=== PATIENT | female | born 1980 | race Caucasian/White ===

== ENCOUNTER 2016-05-07 08:53 | Emergency (ER) | payer BC ==
--- NOTE | 2016-05-07 09:44 | UCPHY ---
H & P Time Seen by Provider: 05/07/16 09:40 Patient Type: Established HPI/ROS: This patient presents with swelling, redness, pain and discharge involving the left RI. She denies any pain of the eyeball itself or any visual changes. Symptoms began 3 days ago she denies any constitutional symptoms such as blurring. Smoking Status: Never smoked Physical Exam: This is a well-developed well-nourished female who is in no acute distress. She is alert, lucid and entirely appropriate. Examination of the left eye reveals normal conjunctiva. Pupils are equal round react to light. There is no photophobia no obvious discharge at this time. The lower lid is swollen and erythematous. On the mucosal surface of the lower lid there is a white papule which I believe represents a stye. Constitutional: Initial Vital Signs Temperature (C) 37 C 05/07/16 09:09 Heart Rate 68 05/07/16 09:09 Respiratory Rate 16 05/07/16 09:09 Blood Pressure 111/71 05/07/16 09:09 O2 Sat (%) 98 05/07/16 09:09 O2 Delivery Mode Room Air Allergies/Adverse Reactions: codeine Allergy (Unknown, Verified 05/07/16 09:12) Unknown Home Medications: Medication Instructions Recorded Probiotic 05/07/16 Medical Decision Making Differential Diagnosis: I do not believe that systemic antibiotics are required and consequently this patient was treated with antibiotic drops. Departure - Departure Disposition: Home, Routine, Self-Care Clinical Impression: Tomym Qualifiers: Laterality: left Eyelid: lower Qualified Code(s): H00.015 - Hordeolum externum left lower eyelid Condition: Good Instructions: Tommy (ED) Additional Instructions: If your symptoms have not improved in 4 or 5 days you should be re-evaluated. If your symptoms are worsening or you develop a fever you should be seen right away. Apply warm packs to the area several times daily. Use the eyedrops every 4 hours while your awake. Adult Pain & Fever Control: We recommend Acetaminophen (Tylenol) and Ibuprofen (Motrin, Advil) for pain and fever control. When fever is high or pain severe, both drugs can be used at the same time, but at different intervals. Please note the time differences. Your dose is: Acetaminophen [650]mg every 4 to 6 hours ibuprofen [600]mg every [6] hours with food OR naproxen Sodium (Aleve) [440]mg every 12 hours. Note: do not take Acetaminophen with Hydrocodone (Vicodin, Lortab) or Oxycodone (Percocet). These medications also contain Acetaminophen. No more than 3000 mg of Acetaminophen should be taken in 24 hours (for an adult) . The maximal dose of ibuprofen that it is safe in a 24-hour period is 2400 mg. You may take 400 mg every 4 hours, 600 mg every 6 hours or 800 mg every 8 hours safely. Referrals: NONE *PRIMARY CARE P,. [Primary Care Provider] - As per Instructions - PQRS PQRS Measurement: Not applicable
[2016-05-07 09:55] VITALS: BP 111/71; PULSE 68; RESP 16; TEMP 98.6; O2SAT 98
[2016-05-07] MEDS ORDERED: POLYMYXIN B SULFATE/TMP 10 ML OPHT.BTL LEFTEYE SCH (10:00)
== END 2016-05-07 09:54 | disposition home or self-care (01) ==
LOC: CED 08:53
DX: H00.015 Hordeolum externum left lower eyelid (principal)
CPT/HCPCS: G0463-PO